=== PATIENT | female | born 1960 | race Caucasian/White ===

== ENCOUNTER 2018-04-09 09:28 | Emergency (ER) | payer BC, OTHER ==
[~2018-04-09 09:28] MED LIST: HYDR-3165 PO; ONDA4TAB10 PO
[2018-04-09 10:04] LABS: BASO # 0.1 x10^3/uL (0.0-0.2); BASO % 1 % (0-3); EOS % 1 % (0-3); HEMOGLOBIN 13.4 g/dL (12.0-15.5); LYMPH # 2.3 x10^3/uL (1.0-4.8); LYMPH % 33 % (24-48); MEAN CORPUSCULAR HEMOGLOBIN 30 pg (25-35); MEAN CORPUSCULAR HGB CONC 34 g/dL (31-37); MEAN CORPUSCULAR VOLUME 90 fL (79-100); MONO # 0.7 x10^3/uL (0.0-1.1); MONO % 10 % (0-9); NEUT # 3.9 x10^3uL (1.8-7.7); NEUT % 56 % (31-73); PLATELET COUNT 439 x10^3/uL (140-400); RED BLOOD COUNT 4.44 x10^6/uL (3.50-5.40); RED CELL DISTRIBUTION WIDTH 14.4 % (11.5-14.5); WHITE BLOOD COUNT 6.9 x10^3/uL (4.0-11.0)
[2018-04-09] MEDS: MORPHINE SULFATE 2 MG/ML DISP.SYRIN. IV ONE (10:11)
[2018-04-09] MEDS: ORPHENADRINE CITRATE 60 MG/2 ML VIAL. IV ONE (10:11)
[2018-04-09] MEDS: ONDANSETRON PF 4 MG/2 ML VIAL. IV ONE (10:11)
[2018-04-09] MEDS: KETOROLAC 30 MG/ML VIAL. IV ONE (10:11)
[2018-04-09 10:16] VITALS: BP 131/68
[2018-04-09 10:18] LABS: ALBUMIN 3.6 g/dL (3.4-5.0); ALBUMIN/GLOBULIN RATIO 1.1 (1.0-1.7); CALCIUM 8.8 mg/dL (8.5-10.1); CREATININE 0.8 mg/dL (0.6-1.0); GFR 74.5; TOTAL BILIRUBIN 0.2 mg/dL (0.2-1.0); TOTAL PROTEIN 6.9 g/dL (6.4-8.2)
--- NOTE | 2018-04-09 10:35 | RAD ---
PQRS Compliance Statement: One or more of the following individualized dose reduction techniques were utilized for this examination: 1. Automated exposure control 2. Adjustment of the mA and/or kV according to patient size 3. Use of iterative reconstruction technique CT LUMBAR SPINE WO CONTRAST, CT THORACIC SPINE WO CONTRAST Clinical Indication: Severe back pain today radiating down both legs, recent cough/sneeze caused reoccurrence of pain, history of chronic back pain/issues Comparison: MR lumbar spine without contrast, January 30, 2015, [facility]. TECHNIQUE: Helical CT imaging of the thoracic and lumbar spine is performed without IV contrast. Findings: No acute fracture in the thoracic spine. The vertebral body height and alignment are maintained. No evidence of high-grade central canal stenosis, limited evaluation by CT. Mild degenerative changes. Gastric lap band is noted. There is an 8 mm inferior left thyroid nodule. Visualized lungs are clear. There is grade 1 retrolisthesis of L4 and L5. No loss of vertebral body height. There is disc space narrowing of L4/L5 and L5/S1. The sacrum is intact. Transverse processes are intact. L1/L2: There is broad-based posterior disc bulge with mild central canal stenosis. Neural foramina are patent. L2/L3: Small broad-based posterior disc bulge. Central canal is adequate. Neural foramina are patent. L3/L4: Central canal and neural foramina are patent. L4/L5: Central canal is patent. Small posterior disc bulge. No significant left and mild right neural foraminal narrowing. L5/S1: Central canal is patent. Neural foramina are adequate. IMPRESSION: 1. No acute fracture. 2. No high-grade narrowing of the central canal. Electronically signed by: Isai Lerma MD (04/09/2018 10:32 AM) [id number]
--- NOTE | 2018-04-09 10:41 | PHYS DOC ---
Past History Past Medical History: Fibromyalgia, Hypertension, Other Past Surgical History: , Hysterectomy, Other Alcohol Use: None Drug Use: None Adult General Chief Complaint Chief Complaint: LOWER BACK PAIN OR INJURY HPI HPI Patient is a 57-year-old female who presents with complaint of mid and lower back pain that is chronic in nature and states that she has a history of degenerative disc disease. Patient states that pain has gotten significantly worse in the last 24 hours and when she woke this morning, she was not able to get out of bed and so called EMS to bring her to the emergency room. She states that EMS had given her pain medication and currently her pain is a 5 out of 10 as long as she lies completely still. She states that at its worst the pain was a 10 out of 10. She indicates that she has pins and needles sensation in both her legs but denies any numbness, saddle anesthesia or loss of bowel or bladder control. She states that pain is worsened with any movements and improved by remaining completely still. Review of Systems Review of Systems Constitutional: Denies fever or chills [] Respiratory: Positive cough without shortness of breath [] Cardiovascular: No additional information not addressed in HPI [] GI: Denies abdominal pain, nausea, vomiting or diarrhea [] : Denies dysuria or hematuria [] Musculoskeletal: Complains of mid and lower back pain [] Integument: Denies rash or skin lesions [] Neurologic: Denies headache, focal weakness or sensory changes [] All other systems were reviewed and found to be within normal limits, except as documented in this note. Current Medications Current Medications Current Medications Medications (Trade) Dose Ordered Sig/[facility] Start Time Stop Time Status Last Admin Dose Admin Ketorolac Tromethamine (Toradol 30mg Vial) 30 mg 1X ONCE 04/09/18 09:45 04/09/18 09:59 DC 04/09/18 10:11 30 MG Morphine Sulfate (Morphine 2mg Syringe) 2 mg 1X ONCE 04/09/18 10:00 04/09/18 10:01 DC 04/09/18 10:11 2 MG Ondansetron HCl (Zofran) 4 mg 1X ONCE 04/09/18 10:00 04/09/18 10:01 DC 04/09/18 10:11 4 MG Orphenadrine Citrate (Norflex) 60 mg 1X ONCE 04/09/18 10:00 04/09/18 10:01 DC 04/09/18 10:11 60 MG Allergies Allergies Allergies Coded Allergies Type Severity Reaction Last Updated Verified No Known Drug Allergies 03/11/16 No Physical Exam Physical Exam Constitutional: Well developed, well nourished, no acute distress, non-toxic appearance. [] HENT: Normocephalic, atraumatic, bilateral external ears normal, oropharynx moist, no oral exudates, nose normal. [] Eyes: PERRLA, EOMI, conjunctiva normal, no discharge. [] Neck: Normal range of motion, no tenderness, supple, no stridor. [] Cardiovascular: Regular rate and rhythm [] Lungs & Thorax: Bilateral breath sounds clear to auscultation [] Abdomen: Bowel sounds normal, soft, no tenderness. [] Skin: Warm, dry, no erythema, no rash. [] Back: There is reported tenderness to palpation in the lumbar paraspinal musculature. [] Extremities: No tenderness, no cyanosis, no clubbing, ROM intact, no edema. [] Neurologic: Alert and oriented X 3, normal motor function, normal sensory function, no focal deficits noted. [] Current Patient Data Vital Signs Vital Signs Date Time Temp Pulse Resp B/P (MAP) Pulse Ox O2 Delivery O2 Flow Rate FiO2 04/09/18 10:16 98.2 70 18 100 Room Air Lab Results Laboratory Tests Test 04/09/18 09:30 White Blood Count 6.9 x10^3/uL (4.0-11.0) Red Blood Count 4.44 x10^6/uL (3.50-5.40) Hemoglobin 13.4 g/dL (12.0-15.5) Hematocrit 40.0 % (36.0-47.0) Mean Corpuscular Volume 90 fL (79-100) Mean Corpuscular Hemoglobin 30 pg (25-35) Mean Corpuscular Hemoglobin Concent 34 g/dL (31-37) Red Cell Distribution Width 14.4 % (11.5-14.5) Platelet Count 439 x10^3/uL (140-400) H Neutrophils (%) (Auto) 56 % (31-73) Lymphocytes (%) (Auto) 33 % (24-48) Monocytes (%) (Auto) 10 % (0-9) H Eosinophils (%) (Auto) 1 % (0-3) Basophils (%) (Auto) 1 % (0-3) Neutrophils # (Auto) 3.9 x10^3uL (1.8-7.7) Lymphocytes # (Auto) 2.3 x10^3/uL (1.0-4.8) Monocytes # (Auto) 0.7 x10^3/uL (0.0-1.1) Eosinophils # (Auto) 0.0 x10^3/uL (0.0-0.7) Basophils # (Auto) 0.1 x10^3/uL (0.0-0.2) Sodium Level 139 mmol/L (136-145) Potassium Level 4.0 mmol/L (3.5-5.1) Chloride Level 102 mmol/L (98-107) Carbon Dioxide Level 27 mmol/L (21-32) Anion Gap 10 (6-14) Blood Urea Nitrogen 12 mg/dL (7-20) Creatinine 0.8 mg/dL (0.6-1.0) Estimated GFR (Cockcroft-Gault) 74.5 BUN/Creatinine Ratio 15 (6-20) Glucose Level 95 mg/dL (70-99) Calcium Level 8.8 mg/dL (8.5-10.1) Total Bilirubin 0.2 mg/dL (0.2-1.0) Aspartate Amino Transferase (AST) 22 U/L (15-37) Alanine Aminotransferase (ALT) 29 U/L (14-59) Alkaline Phosphatase 78 U/L (46-116) Total Protein 6.9 g/dL (6.4-8.2) Albumin 3.6 g/dL (3.4-5.0) Albumin/Globulin Ratio 1.1 (1.0-1.7) EKG EKG [] Radiology/Procedures Radiology/Procedures [] Impressions: CT LUMBAR SPINE WO CONTRAST, CT THORACIC SPINE WO CONTRAST Clinical Indication: Severe back pain today radiating down both legs, recent cough/sneeze caused reoccurrence of pain, history of chronic back pain/issues Comparison: MR lumbar spine without contrast, January 30, 2015, [facility]. TECHNIQUE: Helical CT imaging of the thoracic and lumbar spine is performed without IV contrast. Findings: No acute fracture in the thoracic spine. The vertebral body height and alignment are maintained. No evidence of high-grade central canal stenosis, limited evaluation by CT. Mild degenerative changes. Gastric lap band is noted. There is an 8 mm inferior left thyroid nodule. Visualized lungs are clear. There is grade 1 retrolisthesis of L4 and L5. No loss of vertebral body height. There is disc space narrowing of L4/L5 and L5/S1. The sacrum is intact. Transverse processes are intact. L1/L2: There is broad-based posterior disc bulge with mild central canal stenosis. Neural foramina are patent. L2/L3: Small broad-based posterior disc bulge. Central canal is adequate. Neural foramina are patent. L3/L4: Central canal and neural foramina are patent. L4/L5: Central canal is patent. Small posterior disc bulge. No significant left and mild right neural foraminal narrowing. L5/S1: Central canal is patent. Neural foramina are adequate. IMPRESSION: 1. No acute fracture. 2. No high-grade narrowing of the central canal. Electronically signed by: Isai Lerma MD (04/09/2018 10:32 AM) [id number] Course & Med Decision Making Course & Med Decision Making Pertinent Labs and Imaging studies reviewed. (See chart for details) Patient moved to room upon arrival was evaluated by the medical staff after which an IV was established and blood work drawn. A CT of the thoracic and lumbar spine were obtained. Patient's workup has returned fairly unremarkable. Patient does report moderate improvement in her pain but she states that if she tries to move the pain is quite severe. Patient states that she is afraid to be discharged home stating that she believes that she will be right back here when the pain returns. Given that this facility has no MRI capability, [facility] was contacted and Dr. Ruiz will accept patient in transfer. Thanh Disclaimer Thanh Disclaimer This electronic medical record was generated, in whole or in part, using a voice recognition dictation system. Departure Departure: Impression: Primary Impression: Intractable low back pain Disposition: 02 XFER SHT-TRM HOSP Condition: GOOD Referrals: ROCÍO LION MD (PCP) ANNITA KNUTSON Jr. DO Apr 09, 2018 10:41
[2018-04-09] MEDS ORDERED: ORPH-16 PO (11:49)
== END 2018-04-09 12:30 | disposition short-term general hospital (02) ==
LOC: ER 09:31
DX: M54.5 Low back pain (principal); E04.1 Nontoxic single thyroid nodule; G89.29 Other chronic pain; M48.061 Spinal stenosis, lumbar region without neurogenic claudication; M79.7 Fibromyalgia; I10 Essential (primary) hypertension; Z98.890 Other specified postprocedural states; Z90.710 Acquired absence of both cervix and uterus
CPT/HCPCS: 36415; 72128; 72131; 80053; 85025; 96374; 96375; 99285; J1885; J2270; J2360; J2405

== ENCOUNTER 2018-08-12 22:43 | Emergency (ER) | payer BC ==
[~2018-08-12] VITALS: Ht 162.6 cm; Wt 72.0 kg
[~2018-08-12 22:43] MED LIST changes: +ORPH-16 PO
[2018-08-12] MEDS ORDERED: FAMOTIDINE 20 MG/2 ML VIAL IVP ONE (23:30)
[2018-08-12] MEDS ORDERED: ONDANSETRON PF 4 MG/2 ML VIAL. IV ONE (23:30)
--- NOTE | 2018-08-12 23:39 | PHYS DOC ---
Past History Past Medical History: Fibromyalgia, Hypertension, Other Past Surgical History: , Hysterectomy, Other Alcohol Use: Occasionally Drug Use: None Adult General Chief Complaint Chief Complaint: NAUSEA/VOMITING/DIARRHEA HPI HPI Patient is a 57 year old female who presents with complaint of vomiting. Patient states that her symptoms started 2 days ago and have been persistent. Patient states that she has a lap band that was placed approximately 15 years ago at another facility. She states that over the past few months she has been gaining more weight and decided to go to [facility] office in [place], [place] to have her lap band filled. She states that shortly after having this done on Monday, she started to have vomiting. She states that this time she has not been able to tolerate any intake including fluids or even her own saliva. She states that she started to have small amounts of blood showing up in her vomit today which then prompted her to come to the emergency department. Denies any pain or fever associated with symptoms. Review of Systems Review of Systems Constitutional: Denies fever or chills [] Eyes: Denies change in visual acuity, redness, or eye pain [] HENT: Denies nasal congestion or sore throat [] Respiratory: Denies cough or shortness of breath [] Cardiovascular: Denies chest pain or edema[] GI: Nausea, vomiting, denies abdominal pain, bloody stools or diarrhea [] : Denies dysuria or hematuria [] Musculoskeletal: Denies back pain or joint pain [] Integument: Denies rash or skin lesions [] Neurologic: Denies headache, focal weakness or sensory changes [] All other systems were reviewed and found to be within normal limits, except as documented in this note. Current Medications Current Medications Current Medications Medications (Trade) Dose Ordered Sig/[facility] Start Time Stop Time Status Last Admin Dose Admin Famotidine (Pepcid Vial) 20 mg 1X ONCE 08/12/18 23:30 08/12/18 23:32 DC Ondansetron HCl (Zofran) 4 mg 1X ONCE 08/12/18 23:30 08/12/18 23:32 DC Allergies Allergies Allergies Coded Allergies Type Severity Reaction Last Updated Verified No Known Drug Allergies 03/11/16 No Physical Exam Physical Exam Constitutional: Alert, afebrile, no acute distress, vital signs stable. [] HENT: Normocephalic, atraumatic, bilateral external ears normal, oropharynx moist, no oral exudates, nose normal. [] Eyes: PERRLA, EOMI, conjunctiva normal, no discharge. [] Neck: Normal range of motion, no tenderness, supple, no stridor. [] Cardiovascular: Tachycardia, regular rhythm, no murmur [] Lungs & Thorax: Bilateral breath sounds clear to auscultation [] Abdomen: Bowel sounds normal, soft, no tenderness, no masses, no pulsatile masses. [] Skin: Warm, dry, no erythema, no rash. [] Back: No tenderness, no CVA tenderness. [] Extremities: No tenderness, no cyanosis, no clubbing, ROM intact, no edema. [] Neurologic: Alert and oriented X 3, normal motor function, normal sensory function, no focal deficits noted. [] Current Patient Data Vital Signs Vital Signs Date Time Temp Pulse Resp B/P (MAP) Pulse Ox O2 Delivery O2 Flow Rate FiO2 08/12/18 22:43 98.8 115 18 95 Room Air Lab Results Laboratory Tests Test 08/12/18 23:17 08/12/18 23:30 Urine Collection Type Unknown Urine Color Yellow Urine Clarity Clear Urine pH 6.0 Urine Specific [place] >=1.030 Urine Protein 30 mg/dl Urine Glucose (UA) Neg mg/dL Urine Ketones (Stick) >=160 mg/dL Urine Blood Neg Urine Nitrite Neg Urine Bilirubin Neg Urine Urobilinogen Dipstick 0.2 mg/dL Urine Leukocyte Esterase Neg Urine RBC 0 /HPF Urine WBC Occ /HPF Urine Squamous Epithelial Cells Occ /LPF Urine Bacteria 0 /HPF White Blood Count 10.8 x10^3/uL Red Blood Count 4.78 x10^6/uL Hemoglobin 14.4 g/dL Hematocrit 43.6 % Mean Corpuscular Volume 91 fL Mean Corpuscular Hemoglobin 30 pg Mean Corpuscular Hemoglobin Concent 33 g/dL Red Cell Distribution Width 14.4 % Platelet Count 492 x10^3/uL Neutrophils (%) (Auto) 69 % Lymphocytes (%) (Auto) 21 % Monocytes (%) (Auto) 9 % Eosinophils (%) (Auto) 1 % Basophils (%) (Auto) 0 % Neutrophils # (Auto) 7.4 x10^3uL Lymphocytes # (Auto) 2.3 x10^3/uL Monocytes # (Auto) 1.0 x10^3/uL Eosinophils # (Auto) 0.1 x10^3/uL Basophils # (Auto) 0.0 x10^3/uL Sodium Level 141 mmol/L Potassium Level 3.6 mmol/L Chloride Level 102 mmol/L Carbon Dioxide Level 25 mmol/L Anion Gap 14 Blood Urea Nitrogen 21 mg/dL Creatinine 0.8 mg/dL Estimated GFR (Cockcroft-Gault) 74.5 BUN/Creatinine Ratio 26 Glucose Level 104 mg/dL Calcium Level 9.3 mg/dL Total Bilirubin 0.5 mg/dL Aspartate Amino Transf (AST/SGOT) 20 U/L Alanine Aminotransferase (ALT/SGPT) 29 U/L Alkaline Phosphatase 71 U/L Total Protein 7.8 g/dL Albumin 4.1 g/dL Albumin/Globulin Ratio 1.1 Lipase 98 U/L Current Medications Medications (Trade) Dose Ordered Sig/Hillary Route PRN Reason Start Time Stop Time Status Last Admin Dose Admin Ondansetron HCl (Zofran) 4 mg 1X ONCE IV 08/12/18 23:30 08/12/18 23:32 DC 08/12/18 23:38 Famotidine (Pepcid Vial) 20 mg 1X ONCE IVP 08/12/18 23:30 08/12/18 23:32 DC 08/12/18 23:39 Sodium Chloride 1,000 ml @ 1,000 mls/hr 1X ONCE IV 08/12/18 23:45 08/13/18 00:44 DC 08/12/18 23:38 EKG EKG Not performed[] Radiology/Procedures Radiology/Procedures 3 view acute abdominal series interpreted by me: No pulmonary infiltrates or effusions, normal cardiac silhouette, no free air under the diaphragm, nonobstructive bowel gas pattern[] Course & Med Decision Making Course & Med Decision Making Pertinent Labs and Imaging studies reviewed. (See chart for details) I suspect that the patient's laparoscopic band has been overfilled leading to the patient's son inability to tolerate oral intake. 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 I contacted the after hours line for [employer] and spoke with her nurse. The company does not have a physician solution advisor. They did state that the patient would be able to visit their office first thing in the morning to have the fluid removed from the lap band. Patient was given IV fluids and Zofran in the emergency department with improvement in symptoms. After speaking with the patient she states that she feels comfortable going back to the clinic in the morning to have her lap band fluid withdrawn. Advised return to emergency department for any worsening symptoms. Patient was understanding and in agreement with treatment plan. Dragon Disclaimer Dragon Disclaimer This electronic medical record was generated, in whole or in part, using a voice recognition dictation system. Departure Departure: Impression: Primary Impression: Vomiting Additional Impression: Gastric band malfunction Disposition: HOME, SELF-CARE Condition: STABLE Referrals: ROCÍO LION MD (PCP) Patient Instructions: Angela-Quiñonez Syndrome Additional Instructions: Your vomiting is likely due to your lap band being overfilled at year previous visit. It is recommended that she follow-up tomorrow at [facility] to have the fluid withdrawn from her LAP-BAND as this is believed to help resolve your vomiting. Return to the emergency department for any worsening symptoms. Problem Qualifiers Primary Impression: Vomiting Vomiting type: unspecified Vomiting Intractability: unspecified Nausea presence: without nausea Qualified Codes: R11.11 - Vomiting without nausea JUDE JIMENEZ MD Aug 12, 2018 23:39
[2018-08-12] MEDS ORDERED: IV NORMAL SALINE 1,000ML 1,000 ML IV ONE (23:45)
[2018-08-13 00:11] LABS: BASO % 0 % (0-3); EOS # 0.1 x10^3/uL (0.0-0.7); EOS % 1 % (0-3); HEMATOCRIT 43.6 % (36.0-47.0); HEMOGLOBIN 14.4 g/dL (12.0-15.5); LYMPH # 2.3 x10^3/uL (1.0-4.8); LYMPH % 21 % (24-48); MEAN CORPUSCULAR HEMOGLOBIN 30 pg (25-35); MEAN CORPUSCULAR HGB CONC 33 g/dL (31-37); MEAN CORPUSCULAR VOLUME 91 fL (79-100); MONO % 9 % (0-9); NEUT # 7.4 x10^3uL (1.8-7.7); NEUT % 69 % (31-73); PLATELET COUNT 492 x10^3/uL (140-400); RED BLOOD COUNT 4.78 x10^6/uL (3.50-5.40); RED CELL DISTRIBUTION WIDTH 14.4 % (11.5-14.5); WHITE BLOOD COUNT 10.8 x10^3/uL (4.0-11.0)
[2018-08-13 00:29] LABS: BACTERIA,URINE 0 /HPF (0-FEW); BILIRUBIN,URINE NEG (NEG); CLARITY,URINE CLEAR; COLOR,URINE YELLOW; GLUCOSE,URINE NEG (NEG); NITRITE,URINE NEG (NEG); RBC,URINE 0 /HPF (0-2); SQUAMOUS EPITHELIAL CELL,UR OCC /LPF; UROBILINOGEN,URINE 0.2 mg/dL (0.2 mg/dL); WBC,URINE OCC /HPF (0-4)
[2018-08-13 00:30] LABS: ALBUMIN 4.1 g/dL (3.4-5.0); ALBUMIN/GLOBULIN RATIO 1.1 (1.0-1.7); CALCIUM 9.3 mg/dL (8.5-10.1); CREATININE 0.8 mg/dL (0.6-1.0); GFR 74.5; POTASSIUM 3.6 mmol/L (3.5-5.1); TOTAL BILIRUBIN 0.5 mg/dL (0.2-1.0); TOTAL PROTEIN 7.8 g/dL (6.4-8.2)
[2018-08-13 01:04] VITALS: BP 146/84
--- NOTE | 2018-08-13 08:24 | RAD ---
Acute abdomen series with chest, 3 views, 08/12/2018: HISTORY: Recent lap band fill, nausea and vomiting A lap band device is in place. There is a small collection of gas in the proximal stomach just superior to the level of the gastric band. There is contrast material in the right colon, presumably from a previous diagnostic study. The colon is not dilated. Several small rounded collections of contrast in the distal colon probably lie in diverticula. There is a paucity of bowel gas in the abdomen. No free air is present in the abdomen. There is no evidence of organomegaly. The heart size is normal. The lungs are clear. There is no evidence of pleural fluid. IMPRESSION: 1. A lap band device is in place. 2. No acute abdominal abnormality is detected. Electronically signed by: Leobardo Zavala MD (08/13/2018 8:21 AM) [facility]
== END 2018-08-13 01:05 | disposition home or self-care (01) ==
LOC: ER 22:43
DX: T85.598A Other mechanical complication of other gastrointestinal prosthetic devices, implants and grafts, initial encounter (principal); R11.2 Nausea with vomiting, unspecified; M79.7 Fibromyalgia; I10 Essential (primary) hypertension; Z98.890 Other specified postprocedural states; Z90.710 Acquired absence of both cervix and uterus
CPT/HCPCS: 36415; 74022; 80053; 81001; 83690; 85025; 96361; 96374; 96375; 99285; J2405; J3490; J7030

== ENCOUNTER → 2020-10-26 | Outpatient (CLI) | payer BC ==
--- NOTE | 2020-10-26 09:19 | RAD ---
EXAM: Pelvis and left hip, 3 views. HISTORY: Pain. COMPARISON: None. FINDINGS: A frontal view the pelvis and 2 views of left hip are obtained. There is no fracture, dislo cation or subluxation. The femoral heads are normal in configuration. There is degenerative change in volving the visualized lower lumbar spine. IMPRESSION: No acute osseous finding. Electronically signed by: Charo Navarro MD (10/26/2020 9:16 AM) [id number]
== END ==
LOC: RAD 09:01
PROVIDERS: ATTEND Specialist
DX: M25.552 Pain in left hip (principal); M47.816 Spondylosis without myelopathy or radiculopathy, lumbar region
CPT/HCPCS: 73502